=== PATIENT | female | born 1995 | race African-American/Black ===

== ENCOUNTER 2021-12-15 06:33 | Inpatient (IN) | payer OTHER ==
[2021-12-15] MEDS ORDERED: Lidocaine 1% (PF) 30 ML VIAL SC PRN (06:37)
[2021-12-15] MEDS ORDERED: Carboprost 250 MCG/ML AMP IM PRN (06:37)
[2021-12-15] MEDS ORDERED: Promethazine HCl 25 MG/ML VIAL IM PRN ×2 (06:37→10:11)
[2021-12-15] MEDS ORDERED: Butorphanol Tartrate 1 MG/ML VIAL SLOW IVP PRN (06:37)
[2021-12-15] MEDS ORDERED: Diphenoxylate HCl/Atropine Tablet PO PRN (06:37)
[2021-12-15] MEDS ORDERED: Ondansetron PF 4 MG/2 ML Vial IVP PRN ×3 (06:37→11:05)
[2021-12-15] MEDS ORDERED: Misoprostol 200 MCG TAB PR PRN (06:37)
[2021-12-15] MEDS ORDERED: hydrALAZINE 20 MG/ML VIAL SLOW IVP PRN ×2 (06:37→11:05)
[2021-12-15] MEDS ORDERED: Methylergonovine 0.2 MG/ML VIAL IM PRN ×2 (06:37→11:05)
[2021-12-15] MEDS ORDERED: Lactated Ringer's 1,000 ML IV SCH (06:45)
[2021-12-15] MEDS ORDERED: Penicillin G Potassium 5 MILL.UNITS in Sodium Chloride 0.9% 100 ML IVPB SCH (06:45)
[2021-12-15] MEDS ORDERED: NS w/ Oxytocin 30 units 500 ML IV SCH ×2 (06:45→11:15)
[2021-12-15 06:56] VITALS: BMI 30.2
[2021-12-15] MEDS ORDERED: Fentanyl 2 mcg/Bup 0.1% Cadd 100 ML ONE (07:06)
[2021-12-15 07:18] LABS: Hemoglobin 13.1 g/dL (12.0-15.5); Mean Corpuscular HGB CONC 34.8 g/dL (32.0-36.0); Mean Corpuscular Hemoglobin 32.4 pg (27.0-33.0); Mean Corpuscular Volume 93.1 fl (81.6-98.3); Platelet Count 191 10x3/uL (150-450); RBC Distribution Width 14.8 % (11.5-14.5); Red Blood Cell (RBC) Count 4.04 10x6/uL (3.90-5.03)
[2021-12-15 07:54] LABS: Hep B Surf Ag Non-Reactive S/CO (NonReactive)
[2021-12-15] MEDS ORDERED: Bupivacaine 0.25% HCL 30 ML VIAL ONE (08:00)
[2021-12-15 08:01] LABS: Syphilis Antibody REACTIVE (Nonreactive); Syphilis Antibody Index 9.48 S/CO (<1.00 Non-Reactive)
[2021-12-15] MEDS ORDERED: NS w/ Oxytocin 30 units 500 ML ONE (09:04)
[2021-12-15 09:28] LABS: SARS-CoV-2 NAA Rapid Test DETECTED (NotDetected)
[2021-12-15 10:02] LABS: RapidComm Collect By NURSE; pH (Cord, venous) 7.168 (7.250-7.350)
[2021-12-15] MEDS ORDERED: Acetaminophen 325 MG TAB PO PRN (10:11)
[2021-12-15] MEDS ORDERED: ePHEDrine Sulfate 50 MG/10 ML VIAL SLOW IVP PRN (10:11)
[2021-12-15] MEDS ORDERED: Naloxone HCl 0.4 mg/ml Vial IVP PRN ×2 (10:11)
[2021-12-15] MEDS ORDERED: Lactated Ringer's 500 ML IV PRN (10:11)
[2021-12-15] MEDS ORDERED: diphenhydrAMINE 50 MG/ML VIAL IVP PRN (10:11)
[2021-12-15] MEDS ORDERED: Hydrocerin (Eucerin) Cream 120 gm Jar TOP PRN (10:11)
[2021-12-15] MEDS ORDERED: Communication Order-Pharmacy FS SCH (10:15)
[2021-12-15] MEDS ORDERED: Fentanyl 2 mcg/Bupivacaine 0.1% Cassette 100 ML EPIDURAL SCH (10:15)
[2021-12-15] MEDS ORDERED: Penicillin G 2.5 MILL.units 2.5 MILL.UNITS in Premix Bag 1 BAG IVPB SCH (11:00)
[2021-12-15] MEDS ORDERED: Benzocaine-Menthol 82.5 ML CAN TOP PRN (11:05)
[2021-12-15] MEDS ORDERED: Milk Of Magnesia 30 ML UDCUP PO PRN (11:05)
[2021-12-15] MEDS ORDERED: Bisacodyl 10 MG SUPP PR PRN (11:05)
[2021-12-15] MEDS ORDERED: HYDROcodone/Acetaminophen 5/325 mg Tablet PO PRN ×2 (11:05)
[2021-12-15] MEDS ORDERED: Boostrix 0.5 ML (Tdap) VIAL IM ONE (11:05)
[2021-12-15] MEDS ORDERED: Misoprostol 200 MCG TAB VAG PRN (11:05)
[2021-12-15] MEDS: Ibuprofen 800 MG TAB PO SCH ×2 (13:33→21:55)
[2021-12-15] MEDS: Ferrous Sulfate 325 MG TAB PO SCH (16:18)
[2021-12-15] MEDS ORDERED: Bicillin LA 2.4 MILL.UNITS/4 ML SYRINGE IM SCH (18:00)
[2021-12-15] MEDS: Docusate 100 MG CAP PO SCH (21:55)
[2021-12-16] MEDS: Ibuprofen 800 MG TAB PO SCH ×3 (05:37→21:18)
[2021-12-16] MEDS: Ferrous Sulfate 325 MG TAB PO SCH ×2 (08:07→19:16)
[2021-12-16] MEDS: Docusate 100 MG CAP PO SCH ×2 (08:44→21:18)
[2021-12-16] MEDS: Prenatal Vitamin 1 TAB PO SCH (08:44)
[2021-12-17] MEDS: Ibuprofen 800 MG TAB PO SCH ×2 (05:42→14:06)
[2021-12-17] MEDS: Ferrous Sulfate 325 MG TAB PO SCH (07:06)
[2021-12-17] MEDS: Prenatal Vitamin 1 TAB PO SCH (07:52)
[2021-12-17] MEDS: Docusate 100 MG CAP PO SCH (07:52)
[2021-12-17 08:05] VITALS: BP 143/75; TEMP 97.8
== END 2021-12-17 14:11 | disposition home or self-care (01) | DRG 805 ==
LOC: CSHLD/OP 06:33 → CSHLD 09:41 → CSHPP 13:45
PROVIDERS: ADMIT Student in an Organized Health Care Education/Training Program; ATTEND Student in an Organized Health Care Education/Training Program
PROC: 10E0XZZ Delivery of Products of Conception, External Approach (ICD-10-PCS; principal; 2021-12-15)
PROC: 8E0ZXY6 Isolation (ICD-10-PCS; 2021-12-15)
DX: O77.0 Labor and delivery complicated by meconium in amniotic fluid (principal); U07.1 COVID-19; Z37.0 Single live birth; O98.52 Other viral diseases complicating childbirth; O98.12 Syphilis complicating childbirth; Z20.822 Contact with and (suspected) exposure to COVID-19; A53.9 Syphilis, unspecified; Z3A.37 37 weeks gestation of pregnancy
CPT/HCPCS: 36415; 51702; 82805; 85027; 86593; 86780; 86850; 86900; 86901; 87340; J0561; J2590; S0020; U0002